=== PATIENT | female | born 2000 | race Caucasian/White ===

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

== ENCOUNTER 2022-07-19 14:21 | Outpatient (REF) | payer SELFPAY ==
[2022-07-19 19:52] LABS: HCT 38.5 % (36.0-46.0); MCH 28.6 pg (27.0-33.0); MCHC 33.8 % (32.0-36.0); MCV 85 fL (80-95); MPV 9.6 fL (8.0-11.0); Platelet Count 255 10^3/uL (130-400); RBC 4.54 10^6/uL (3.93-5.22); RDW 12.5 % (11.7-14.6); RDW-SD 38.2 fL
[2022-07-19 20:16] LABS: FREE T4 0.93 ng/dL (0.78-1.34); TSH 1.17 uIU/mL (0.52-4.13)
== END 2022-07-19 14:22 | disposition home or self-care (01) ==
LOC: NCHCN 14:21
PROVIDERS: PCP Internal Medicine; Visit Provider Internal Medicine
DX: E03.9 Hypothyroidism, unspecified (principal); R06.02 Shortness of breath
CPT/HCPCS: 85027; 84439; 84443

== ENCOUNTER 2024-06-17 16:45 | Outpatient (REF) | payer BC, SELFPAY ==
[2024-06-17 19:09] LABS: Abs Immature Grans 0.02 10^3/uL (0.0-0.06); Absolute Basophil Count 0.06 10^3/uL (0.0-0.2); Absolute Eosinophil Count 0.12 10^3/uL (0.0-0.7); Absolute Lymphocyte Count 2.13 10^3/uL (1.2-3.4); Absolute Monocyte Count 0.36 10^3/uL (0.1-0.8); Absolute Neutrophil Count 2.97 10^3/uL (1.2-6.7); Basophils % 1.1 %; Eosinophils % 2.1 %; HCT 41.6 % (36.0-46.0); Immature Grans % 0.4 %; Lymphocytes % 37.6 %; MCH 29.4 pg (27.0-33.0); MCHC 33.7 % (32.0-36.0); MCV 87 fL (80-95); MPV 9.4 fL (8.0-11.0); Monocytes % 6.4 %; Neutrophils % 52.4 %; Platelet Count 270 10^3/uL (130-400); RBC 4.76 10^6/uL (3.93-5.22); RDW 12.5 % (11.7-14.6); RDW-SD 39.8 fL; WBC 5.66 10^3/uL (4.4-10.8)
[2024-06-17 19:20] LABS: ALT 57 U/L (14-59); AST 23 U/L (15-37); Albumin 3.5 g/dL (3.4-5.0); Alkaline Phosphatase 115 U/L (46-116); Anion Gap 5.4 mmol/L (3-11); BUN 14 mg/dL (7-18); Bilirubin, Total 0.6 mg/dL (0.2-1.0); CO2 29.6 mmol/L (21.0-32.0); CREATININE 0.9 mg/dL (0.55-1.02); Calcium 9.1 mg/dL (8.5-10.1); Chloride 107 mmol/L (98-107); Estimated GFR 93.28 (mL/min/1.73m2); Glucose 103 mg/dL (74-106); Potassium 4.2 mmol/L (3.5-5.1); Sodium 142 mmol/L (136-145); Total Protein 7.2 g/dL (6.4-8.2)
== END 2024-06-17 16:46 | disposition home or self-care (01) ==
LOC: NCHCN 16:45
PROVIDERS: PCP Internal Medicine; Visit Provider Physician Assistant
DX: K80.71 Calculus of gallbladder and bile duct without cholecystitis with obstruction (principal)
CPT/HCPCS: 80053; 85025